=== PATIENT | female | born 1985 | race Caucasian/White ===

== ENCOUNTER 2019-09-03 15:13 | Inpatient (IN) ==
[2019-09-03] MEDS: NS 1,000 ML IV ONE ×2 (15:23→15:43)
[2019-09-03] MEDS ORDERED: NS 1,000 ML ONE ×2 (15:23→15:24)
[2019-09-03] MEDS ORDERED: DILAUDID ONE ×2 (15:30→15:56)
[2019-09-03] MEDS ORDERED: ZOFRAN ONE (15:30)
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
[2019-09-03] MEDS ORDERED: NS 1,000 ML IV ONE (15:39)
[2019-09-03] MEDS ORDERED: ZOFRAN IV ONE (15:43)
[2019-09-03] MEDS ORDERED: DILAUDID IV ONE ×2 (15:43→15:54)
[2019-09-03] MEDS ORDERED: XYLOCAINE-MPF 1% INJ ONE (16:00)
[2019-09-03] MEDS ORDERED: XYLOCAINE-MPF 1% ONE (16:10)
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
[2019-09-03 17:16] LABS: BASO# 0.02 X1000 (0.0-0.2); BASO% 0.2 % (0.0-0.8); EOS# 0.03 X1000 (0.0-0.7); EOS% 0.3 % (0.0-10.0); HEMATOCRIT 21.2 % (37.0-47.0); HEMOGLOBIN 6.8 g/dL (12.0-16.0); IMM GRAN# 0.02 X1000 (0.0-0.04); IMM GRAN% 0.2 % (0.0-0.5); LYMPH# 0.76 X1000 (1.2-3.4); LYMPH% 7.8 % (20.5-51.1); MCH 29.8 PG (27-31); MCHC 32.1 g/dL (33-37); MONO# 0.44 X1000 (0.11-0.59); MONO% 4.5 % (1.7-9.3); NEUT# 8.51 X1000 (1.4-6.5); PLT 145 X1000 (130-400); RBC 2.28 XMIL (4.2-5.4); RDW 12.1 % (11.5-14.5); WBC 9.78 X1000 (4.8-10.8)
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
[2019-09-03] MEDS ORDERED: NS 500 ML IV ONE (17:30)
[2019-09-03 17:32] LABS: INR 1.4; PROTIME 17.4 Seconds (11.0-16.0)
[2019-09-03] MEDS ORDERED: POTASSIUM CHLORIDE 40 MEQ in NS 1,000 ML IV ONE (17:32)
[2019-09-03 17:33] LABS: PTT 29.1 Seconds (22.3-41.8)
[2019-09-03 17:36] LABS: AGAP 10; ALB/GLOB RATIO 1.5; ALBUMIN 1.8 g/dL (3.5-5.0); ALKALINE PHOSPHATASE 17 U/L (32-104); BUN 6 mg/dL (8-22); CALCIUM 3.9 mg/dL (8.8-10.2); CHLORIDE 119 mmol/L (98-107); COSMO 275; CREATININE 0.3 mg/dL (0.5-0.9); ESTIMATED GFR > 60; GLUCOSE 63 mg/dL (70-104); GOT 6 U/L (10-30); GPT 5 U/L (10-36); POTASSIUM 2.3 mmol/L (3.5-5.1); SODIUM 140 mmol/L (136-145); TCO2 11 mmol/L (25-35); TOTAL BILIRUBIN < 0.15 mg/dL (0.20-1.00)
[2019-09-03] MEDS: MORPHINE INJ PRN ×3 (18:29→23:42)
[2019-09-03] MEDS: TYLENOL PO SCH (20:01)
[2019-09-03] MEDS: NORCO-10 PO PRN (20:01)
[2019-09-03] MEDS: MOTRIN PO SCH (20:04)
[2019-09-03 21:14] LABS: URINE SOURCE CLEAN CATCH
[2019-09-03 21:16] LABS: BILIRUBIN URINE NEGATIVE (NEGATIVE); BLOOD URINE TRACE (NEGATIVE); COLOR STRAW; GLUCOSE URINE NEGATIVE (NEGATIVE); KETONE URINE 20 mg/dL (NEGATIVE); LEUKOCYTES URINE NEGATIVE (NEGATIVE); NITRITE URINE NEGATIVE (NEGATIVE); PROTEIN URINE NEGATIVE (NEGATIVE); TURBIDITY URINE CLEAR (CLEAR); UROBILINOGEN URINE NORMAL (NORMAL)
[2019-09-03 21:17] LABS: UR EPITHELIAL CELLS <10 /HPF (<10); URINE BACTERIA NEGATIVE /HPF; URINE RBC <10 /HPF (<10); URINE WBC <10 /HPF (<10)
[2019-09-04] MEDS ORDERED: BLISTEX MEDICATED BERRY LIP BALM TOP ONE (01:20)
[2019-09-04] MEDS: MORPHINE INJ PRN ×8 (01:42→21:51)
[2019-09-04] MEDS: NORCO-10 PO PRN ×3 (01:47→18:14)
[2019-09-04] MEDS: MOTRIN PO SCH ×3 (01:51→18:11)
[2019-09-04] MEDS: TYLENOL PO SCH ×3 (03:38→18:11)
[2019-09-04] MEDS: PHENERGAN INJ PRN ×2 (03:49→21:51)
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
--- NOTE | 2019-09-04 09:25 | Diag Imaging Result Doc PS360 ---
EXAM: CHEST-PORTABLE 09/04/2019 HISTORY: chest tube TECHNIQUE: Erect AP portable at 0856 COMMENT: There is a chest tube on the left. There is a tiny residual apical pneumothorax on the left. There is still considerable soft tissue emphysema in the left chest wall and supraclavicular region. This may be have diminished slightly since the previous study however. There is minimal atelectasis in the left lower lobe and the lungs are generally less well-expanded than on 09/03/2019. IMPRESSION: Stable minimal left pneumothorax. Soft tissue emphysema. Left lower lobe subsegmental atelectasis. Electronically signed by Tristin Thompson 09/04/2019 9:23 AM
[2019-09-04] MEDS: PRINZIDE 20/12.5MG PO SCH (18:14)
[2019-09-05] MEDS: TYLENOL PO SCH ×2 (01:32→09:36)
[2019-09-05] MEDS: MOTRIN PO SCH ×2 (01:32→09:36)
[2019-09-05] MEDS: MORPHINE INJ PRN ×2 (01:44→04:42)
[2019-09-05 05:55] LABS: BASO# 0.03 X1000 (0.0-0.2); BASO% 0.5 % (0.0-0.8); EOS# 0.29 X1000 (0.0-0.7); EOS% 4.4 % (0.0-10.0); HEMATOCRIT 35.4 % (37.0-47.0); HEMOGLOBIN 11.5 g/dL (12.0-16.0); LYMPH% 33.5 % (20.5-51.1); MCH 30.1 PG (27-31); MCHC 32.5 g/dL (33-37); MCV 92.7 FL (81-99); MONO# 0.47 X1000 (0.11-0.59); MONO% 7.2 % (1.7-9.3); MPV 10.7 FL (7.4-10.4); NEUT# 3.57 X1000 (1.4-6.5); NEUT% 54.4 % (42.2-75.2); PLT 194 X1000 (130-400); RBC 3.82 XMIL (4.2-5.4); RDW 14.1 % (11.5-14.5); WBC 6.56 X1000 (4.8-10.8)
[2019-09-05 07:43] VITALS: BP 122/95
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
[2019-09-05] MEDS: PRINZIDE 20/12.5MG PO SCH (09:36)
[2019-09-05] MEDS: NORCO-10 PO PRN (09:36)
== END 2019-09-05 11:20 | disposition home or self-care (01) | DRG 200 ==
LOC: ED 15:13 → 4N 17:17
PROVIDERS: ADMIT Surgery; ATTEND Surgery